=== PATIENT | male | born 1965 | race Caucasian/White ===

== ENCOUNTER 2020-05-21 00:52 | Outpatient (CLI) | payer OTHER, SELFPAY ==
[2020-05-21 19:06] LABS: SARS-CoV-2 RNA PCR Negative
== END 2020-05-21 00:53 | disposition home or self-care (01) ==
LOC: ANHCOVIDDT 00:52
PROVIDERS: PCP Internal Medicine; Visit Provider Surgery
DX: Z01.812 Encounter for preprocedural laboratory examination (principal); Z20.822 Contact with and (suspected) exposure to COVID-19
CPT/HCPCS: C9803; U0003

== ENCOUNTER 2020-05-21 08:11 | Outpatient (CLI) | payer OTHER, SELFPAY ==
--- NOTE | 2020-05-21 08:13 | ECG_ITS ---
Measurements Intervals [place] Rate: 59 P: 32 RI: 187 QRS: 3 QRSD: 112 T: 17 QT: 398 QTc: 397 Interpretive Statements SINUS BRADYCARDIA INTRAVENTRICULAR CONDUCTION DELAY BORDERLINE ECG Electronically Signed On 05-21-2020 8:42:52 PERSONAL CARE SERVICE PROVIDER by Lake Villagomez D.O.
[2020-05-21 08:42] LABS: Basophils Absolute Auto 0.1 K/mm3 (0.0-0.1); Basophils Percent Auto 1.4 % (0.2-1.2); Eosinophils Absolute Auto 0.3 K/mm3 (0-0.3); Eosinophils Percent Auto 4.1 % (0-4.4); Hematocrit 46.3 % (42.0-52.0); Hemoglobin 15.9 g/dL (14.0-18.0); Immature Granulocyte Absolute 0.02 K/mm3 (0.00-0.031); Immature Granulocyte Percent A 0.3 % (0-0.5); Lymphocytes Absolute Auto 1.94 K/mm3 (0.9-3.2); Lymphocytes Percent Auto 25.5 % (18.3-44.2); Mean Corpuscular HGB Conc 34.3 g/dl (32-36); Mean Corpuscular Hemoglobin 28.9 pg (26-34); Mean Corpuscular Volume 84.2 fl (80-100); Monocytes Absolute Auto 0.6 K/mm3 (0.1-0.6); Monocytes Percent Auto 7.5 % (2.6-8.5); Neutrophils Absolute Auto 4.7 K/mm3 (1.3-6.7); Neutrophils Percent Auto 61.2 % (45.5-73.1); Platelet Count Result 291 k/mm3 (150-375); Red Cell Distribution Width 12.3 % (11.5-14.5); White Blood Count 7.6 K/mm3 (4.5-10.0)
[2020-05-21 08:56] LABS: Alanine Aminotransferase 19 U/L (4-50); Albumin Level 4.3 g/dL (3.5-5.1); Alkaline Phosphatase 54 U/L (38-126); Anion Gap 8 mmol/L (8-16); Aspartate Amino Transferase 21 U/L (17-59); Bilirubin,Total 0.5 mg/dL (0.2-1.3); Blood Urea Nitrogen 16 mg/dL (9-20); Calcium 9.2 mg/dL (8.4-10.2); Carbon Dioxide 29 mmol/L (22-30); Chloride 101 mmol/L (98-107); Estimated Glomerular Filt Rate > 60; Glucose 95 mg/dL (75-110); Sodium 138 mmol/L (137-145)
== END 2020-05-21 08:12 | disposition home or self-care (01) ==
PROVIDERS: PCP Internal Medicine; Visit Provider Surgery
DX: Z01.818 Encounter for other preprocedural examination (principal); I10 Essential (primary) hypertension; K40.91 Unilateral inguinal hernia, without obstruction or gangrene, recurrent; R00.1 Bradycardia, unspecified; I45.9 Conduction disorder, unspecified
CPT/HCPCS: 36415; 80053; 85025; 93005

== ENCOUNTER 2020-05-24 01:03 | Day surgery (SDC) | payer OTHER, SELFPAY ==
[2020-05-24 10:02] VITALS: BP 166/111; PULSE 69; RESP 20; TEMP 36.8; O2SAT 99
[2020-05-24 10:09] VITALS: BP 164/104
[2020-05-24 10:34] VITALS: BP 142/93
[2020-05-24] MEDS: LACTATED RINGERS 1,000 ML 30 ML IV CONT (10:50)
[2020-05-24] MEDS: ACETAMINOPHEN 500 MG TABLET 1000 MG PO (10:50)
--- NOTE | 2020-05-24 11:01 | WPDHPUPDATE1 ---
History and Physical Update Update Date/Time: 05/24/20 11:01 History and Physical has been reviewed, including an updated exam of the patient. There are NO changes in the patient's condition. Risks, benefits, and alternatives have been discussed and questions answered. Patient agrees to proceed with procedure.
[2020-05-24] MEDS: KETOROLAC 15 MG/ML VIAL (*BKC) IV PUSH (11:05)
--- NOTE | 2020-05-24 12:06 | WPDANESEPPF ---
Anes - Initial Pre Proc Eval Procedure: Operation Date: 05/24/20 12:00 Proposed Procedures p Repair Left Recurrent Inguinal Hernia - Godfrey Rojas MD Date/Time: 05/24/20 12:06 Surgeon: Godfrey Rojas MD Pre Op Diagnosis: Recurring Left Inguinal Hernia Patient Data Age: 55 Gender: M Height: Weight: 97.4 kg Last Vital Signs Temp 36.8 C 05/24/20 10:02 Pulse 69 05/24/20 10:02 Resp 20 05/24/20 10:02 BP 142/93 H 05/24/20 10:34 Pulse Ox 99 05/24/20 10:02 Allergies Allergy/AdvReac Type Severity Reaction Status Date / Time Penicillins AdvReac Unknown UNKNOWN- Verified 05/24/20 10:02 A CHILD Home Medications Medication Instructions Recorded Confirmed Type amlodipine 5 mg tablet 5 mg PO DAILY 05/02/20 05/24/20 History atorvastatin 10 mg tablet 10 mg PO DAILY 05/02/20 05/24/20 History chlorthalidone 25 mg tablet 25 mg PO DAILY 05/02/20 05/24/20 History escitalopram oxalate 10 mg tablet 10 mg PO DAILY 05/02/20 05/24/20 History aspirin 81 mg tablet,delayed 81 mg PO DAILY 05/08/20 05/24/20 History release flaxseed oil 1,000 mg capsule 1,000 mg PO DAILY 05/08/20 05/24/20 History glucosamine HCl 750 mg tablet 750 mg PO DAILY 05/08/20 05/24/20 History multivitamin 1 tablet PO DAILY 05/08/20 05/24/20 History omega-3 fatty acids 1,000 mg 1,000 mg PO DAILY 05/08/20 05/24/20 History capsule zolpidem 10 mg tablet 10 mg PO ONCE 05/08/20 05/24/20 History Patient hx anesthesia problems: none Family hx anesthesia problems: none PMFSH Past Medical History Medical History High cholesterol Hypertension Surgical History Surgical History History of inguinal hernia repair Bilateral Family History Family History Mother Breast cancer Unknown Hypertension Social History Social History Smoking packs per day: 0.25 Smoking cigarettes per day: 5.0 Years smoked: 4 Smoking pack-years: 1.00 Smoking status: Former smoker Tobacco type: cigars Alcohol intake: current Substance use: never Last use: 2016 Living arrangements: with family Additional occupation/education comments: Sales Gender identity (if verbalized by the patient): Male Sexual Orientation (if Verbalized by the Patient): Straight or Heterosexual Spiritual care concerns: No Anes - Eval Final PreProcedure Day of Procedure 05/24/20 12:06 Patient weight: obese Heart: regular rate and rhythm Lungs: clear to auscultation Airway: Mallampati scale class II Neurological: alert and oriented Last oral intake: >/= 8 hours ASA classification: II Emergent: no Anesthetic plan: proceed Anesthesia type and monitoring: general GIVS and standard monitoring Informed Consent: The patient's anesthetic plan and its attendant risks and benefits were discussed with the patient/family/POA. Questions were solicited and answers provided to the satisfaction of the patient/family/POA.
--- NOTE | 2020-05-24 12:40 | SUR.PREOP ---
Up to bathroom.
[2020-05-24] MEDS: ceFAZolin 2 GM/D5W 50 ML 2 GM/50 ML BAG IVPB (12:49)
[2020-05-24] MEDS: BUPIVACAINE HCL 0.5% PF 30 ML VIAL 10 ML INFILTRATE (13:21)
[2020-05-24 14:09] VITALS: BP 128/92; PULSE 63; RESP 16; O2SAT 98
--- NOTE | 2020-05-24 14:14 | P.OP_ITS ---
Procedure Note - Detailed Date of procedure: 05/24/20 Pre-op diagnosis: Recurring Left Inguinal Hernia Recurrent left inguinal hernia Post-op diagnosis: other (Large left hydrocele) Procedure performed: Left groin exploration, removal left hydrocele Description of procedure: The patient was taken to surgery and IV sedation was administered. The left groin and genitalia were prepped and draped. The medial-most aspect of the old left inguinal scar was excised with the incision. The proposed incision was marked on the skin. Local was infiltrated into the area. An ellipse incorporating 80% of the old incision was made and this skin was excised. Cautery was used for hemostasis. Dissection was then carried down through the subcutaneous. We encountered a significant amount of scar tissue at the external oblique aponeurosis. We continued and expose the external oblique aponeurosis. Local was infiltrated deep to the aponeurosis in the usual fashion. The aponeurosis was opened laterally and extended medially through the external ring. This required a fair amount of dissection as there was a lot of scarring deep to the external oblique aponeurosis. Some of the old Ethibond sutures were removed during this process. We then used the cautery and freed the leaves of the external oblique aponeurosis from the underlying spermatic cord and inguinal canal contents. Very little bleeding occurred during this. It was noted at this time that there was not much in the way of cord swelling which I expected to have as there was a large mass in the left scrotum which was expected to be a recurrent left inguinal hernia that extended into the scrotum. I continued dissection and mobilized the scrotum starting medially and proceeding laterally to the internal ring. I inspected the cord aninguinal sara l floor. There was no evidence of a hernia at all. I then pushed up on the left scrotal mass and brought it up so that it was evident and able to be dissected in the wound. This was clearly a large hydrocele. I dissected much of this out. I then opened it and removed the fluid. The hydrocele was quite well defined and I went ahead and dissected it free from the scrotal and spermatic cord contents. This was bloodless and was done with the cautery. The hydrocele was sent away as a specimen. There was some other loculated smaller hydroceles around the testicle which I opened and drained as well. There was no evidence of a communicating hydrocele. I then put the testicle back down deep into the scrotum. We went ahead and closed the external oblique aponeurosis with interrupted 3 0 Vicryl suture. Roosevelt's fascia was closed with interrupted 3 0 Vicryl suture. The subcutaneous was closed with interrupted 4 0 Vicryl suture. Four 0 Vicryl subcuticular interrupted skin sutures were then placed. Finally the skin was closed with a running 4 0 Monocryl skin closure. The wound was dressed with Exofin surgical adhesive. The patient was awakened and taken to recovery in good condition. Sponge and needle counts were correct x2. No complications were noted. Anesthesia: MAC and local (0.5% Marcaine with Exparel) Surgeon: Godfrey Rojas MD Composite Laminator: Chandler FRIEDMAN Estimated blood loss (mL): 5 Drains: No Packing: No Pathology: yes (Left hydrocele) Complications: None Condition: stable Disposition: same day Findings: No recurrent hernia. Large left hydrocele
[2020-05-24] MEDS: oxyCODONE HCL (*CRX) 5 MG TAB IR PO (14:37)
[2020-05-24 14:51] VITALS: BP 152/102; PULSE 63; RESP 16; O2SAT 100
[2020-05-24 15:07] VITALS: BP 157/104; PULSE 61; RESP 16
== END 2020-05-24 15:17 | disposition home or self-care (01) ==
PROVIDERS: PCP Internal Medicine; Visit Provider Surgery
PROC: (CPT 55040; principal; 2020-05-24 12:00)
DX: N43.3 Hydrocele, unspecified (principal); I10 Essential (primary) hypertension; E78.00 Pure hypercholesterolemia, unspecified; Z79.82 Long term (current) use of aspirin; Z87.891 Personal history of nicotine dependence; E66.9 Obesity, unspecified; Z68.29 Body mass index [BMI] 29.0-29.9, adult
CPT/HCPCS: 55040; 36415; 80053; 85025; 88302; 93005; A9270; C9290; C9803; J0690; J1100; J1885; J2250; J2405; J2704; J3010; J7120; U0003

== ENCOUNTER 2021-03-07 00:49 | Day surgery (SDC) | payer OTHER, SELFPAY ==
[2021-02-21 15:50] VITALS: BMI 29.9
[2021-03-07 08:36] VITALS: BP 162/103; PULSE 76; RESP 18; TEMP 36.8; O2SAT 96
--- NOTE | 2021-03-07 08:45 | WPDGICN ---
Assessment and Plan Assessment and plan (1) KOJO (iron deficiency anemia): Code(s): D50.9 - Iron deficiency anemia, unspecified Status: Acute Assessment and Plan: Plan is for screening exam because of iron deficient indices and mild anemia. Further recommendations will be given after endoscopy. GI Consult Note Consult date/time: 03/07/21 08:45 HPI: Felix Salinas is a 55 year old male presents for colonoscopy. Patient found to have mild normochromic normocytic anemia with low iron indices. Patient denies abdominal pain. He has had no bleeding. Family history is noncontributory. Patient does report history of a hydrocele that ruptured this summer with some bleeding in at that instance. He has had no blood in his stools. He denies abdominal pain. Patient presents today for screening colonoscopy for this reason. Review of Systems Review of Systems: All systems reviewed & are unremarkable except as noted in HPI and below PMFSH Past Medical History Medical History High cholesterol Hypertension Surgical History Surgical History History of hydrocelectomy 05/24/20 Left groin exploration, removal left hydrocele History of inguinal hernia repair Bilateral Family History Family History Mother Breast cancer Unknown Hypertension Social History Social History (Updated 07/27/20 @ 13:43 by Jackie Bernstein) Smoking status: Never smoker Tobacco type: cigars Alcohol intake: current Drinks per week: 12 Alcohol use details: social Substance use: never Substance use type: does not use Living arrangements: with family Additional occupation/education comments: Sales Gender identity (if verbalized by the patient): Male Sexual Orientation (if Verbalized by the Patient): Straight or Heterosexual Spiritual care concerns: No Meds Home Medications and Allergies Home Medications Medication Instructions Recorded Confirmed Type amlodipine 5 mg tablet 5 mg PO DAILY 05/02/20 02/21/21 History atorvastatin 10 mg tablet 10 mg PO DAILY 05/02/20 02/21/21 History chlorthalidone 25 mg tablet 25 mg PO DAILY 05/02/20 02/21/21 History escitalopram oxalate 10 mg tablet 10 mg PO DAILY 05/02/20 02/21/21 History aspirin 81 mg tablet,delayed 81 mg PO DAILY 05/08/20 02/21/21 History release flaxseed oil 1,000 mg capsule 1,000 mg PO DAILY 05/08/20 02/21/21 History glucosamine HCl 750 mg tablet 750 mg PO DAILY 05/08/20 02/21/21 History multivitamin 1 tablet PO DAILY 05/08/20 02/21/21 History omega-3 fatty acids 1,000 mg 1,000 mg PO DAILY 05/08/20 02/21/21 History capsule zolpidem 10 mg tablet 10 mg PO HS 05/08/20 02/21/21 History pantoprazole 40 mg PO DAILY 02/21/21 02/21/21 History Allergies Allergy/AdvReac Type Severity Reaction Status Date / Time Penicillins AdvReac Unknown UNKNOWN- Verified 03/07/21 08:34 A CHILD Vital Signs Vital Signs - 24 hr 03/07/21 08:36 Temperature 98.3 F Pulse Rate 76 Respiratory Rate 18 Blood Pressure 162/103 H Pulse Oximetry 96 Exam Narrative: Physical exam reveals patient to be alert. Vital signs stable. HEENT exam is unremarkable. Patient is anicteric. Lungs are clear to auscultation and percussion. Heart is without murmur or extra sounds. Abdominal exam bowel sounds are present soft nontender with no hepatosplenomegaly digital external rectal exam is normal.
[2021-03-07] MEDS: LACTATED RINGERS 1,000 ML 150 ML IV CONT (08:53)
--- NOTE | 2021-03-07 08:53 | WPDANESEPPF ---
Anes - Initial Pre Proc Eval Procedure: Operation Date: 03/07/21 09:45 Proposed Procedures p Colonoscopy - Chandler Rasmussen MD Date/Time: 03/07/21 08:53 Surgeon: Chandler Rasmussen MD Pre Op Diagnosis: KOJO Patient Data Age: 55 Gender: M Height: 1.83 m Weight: 98.1 kg Last Vital Signs Temp 98.3 F 03/07/21 08:36 Pulse 76 03/07/21 08:36 Resp 18 03/07/21 08:36 BP 162/103 H 03/07/21 08:36 Pulse Ox 96 03/07/21 08:36 Allergies Allergy/AdvReac Type Severity Reaction Status Date / Time Penicillins AdvReac Unknown UNKNOWN- Verified 03/07/21 08:34 A CHILD Home Medications Medication Instructions Recorded Confirmed Type amlodipine 5 mg tablet 5 mg PO DAILY 05/02/20 02/21/21 History atorvastatin 10 mg tablet 10 mg PO DAILY 05/02/20 02/21/21 History chlorthalidone 25 mg tablet 25 mg PO DAILY 05/02/20 02/21/21 History escitalopram oxalate 10 mg tablet 10 mg PO DAILY 05/02/20 02/21/21 History aspirin 81 mg tablet,delayed 81 mg PO DAILY 05/08/20 02/21/21 History release flaxseed oil 1,000 mg capsule 1,000 mg PO DAILY 05/08/20 02/21/21 History glucosamine HCl 750 mg tablet 750 mg PO DAILY 05/08/20 02/21/21 History multivitamin 1 tablet PO DAILY 05/08/20 02/21/21 History omega-3 fatty acids 1,000 mg 1,000 mg PO DAILY 05/08/20 02/21/21 History capsule zolpidem 10 mg tablet 10 mg PO HS 05/08/20 02/21/21 History pantoprazole 40 mg PO DAILY 02/21/21 02/21/21 History Patient hx anesthesia problems: none Family hx anesthesia problems: none Results Review: All pre-operative results and documents have been reviewed as part of the pre-operative evaluation. [facility] Past Medical History Medical History High cholesterol Hypertension Surgical History Surgical History History of hydrocelectomy 05/24/20 Left groin exploration, removal left hydrocele History of inguinal hernia repair Bilateral Family History Family History Mother Breast cancer Unknown Hypertension Social History Social History (Updated 07/27/20 @ 13:43 by Jackie Bernstein) Smoking status: Never smoker Tobacco type: cigars Alcohol intake: current Drinks per week: 12 Alcohol use details: social Substance use: never Substance use type: does not use Living arrangements: with family Additional occupation/education comments: Sales Gender identity (if verbalized by the patient): Male Sexual Orientation (if Verbalized by the Patient): Straight or Heterosexual Spiritual care concerns: No Anes - Eval Final PreProcedure Day of Procedure 03/07/21 08:53 Patient weight: overweight Heart: regular rate and rhythm Lungs: clear to auscultation Airway: Mallampati scale Neurological: alert and oriented Last oral intake: >/= 8 hours ASA classification: III Emergent: no Anesthetic plan: proceed Anesthesia type and monitoring: general GIVS and standard monitoring Results Review: All pre-operative results and documents have been reviewed as part of the pre-operative evaluation. Informed Consent: The patient's anesthetic plan and its attendant risks and benefits were discussed with the patient/family/POA. Questions were solicited and answers provided to the satisfaction of the patient/family/POA.
[2021-03-07 09:39] VITALS: BP 126/87; PULSE 70; RESP 15; O2SAT 96
[2021-03-07 09:49] VITALS: BP 143/96; PULSE 63; RESP 15; O2SAT 99
== END 2021-03-07 10:17 | disposition home or self-care (01) ==
PROVIDERS: PCP Internal Medicine; Visit Provider Internal Medicine Gastroenterology
PROC: 0DJD8ZZ Inspection of Lower Intestinal Tract, Via Natural or Artificial Opening Endoscopic (ICD-10-PCS; CPT 45378; principal; 2021-03-07 09:45)
DX: D50.9 Iron deficiency anemia, unspecified (principal); K63.5 Polyp of colon; K64.8 Other hemorrhoids; K57.30 Diverticulosis of large intestine without perforation or abscess without bleeding; Z79.82 Long term (current) use of aspirin; I10 Essential (primary) hypertension; E78.00 Pure hypercholesterolemia, unspecified; F17.290 Nicotine dependence, other tobacco product, uncomplicated
CPT/HCPCS: 45385; 88305; J2704; J7120